=== PATIENT | male | born 1985 | race Caucasian/White ===

== ENCOUNTER → 2024-02-08 08:59 | Outpatient (REF) | payer OTHER, SELFPAY | LOC: RCS 08:59 | PROVIDERS: ATTENDING PHYSICIAN Nurse Practitioner Family | DX: R00.0 Tachycardia, unspecified (principal) | CPT/HCPCS: 93017 ==

== ENCOUNTER → 2024-03-02 08:13 | Outpatient (REF) | payer OTHER, SELFPAY | LOC: RCS 08:13 | PROVIDERS: ATTENDING PHYSICIAN Nurse Practitioner Family | DX: R00.0 Tachycardia, unspecified (principal) | CPT/HCPCS: 93225; 93226; 93306 ==